=== PATIENT | female | born 1960 | race Caucasian/White ===

== ENCOUNTER 2019-12-03 15:42 | Emergency (ER) | payer MEDICAID ==
[~2019-12-03] VITALS: Ht 162.6 cm; Wt 140.6 kg
[2019-12-03 15:49] VITALS: BP_SYST 125
--- NOTE | 2019-12-03 15:58 | NUR ---
Patient triaged and placed in waiting room. VSS and patient appears in no acute distress at this time. Awaiting available bed, and MD notified of need for MSE.
--- NOTE | 2019-12-03 17:08 | NUR ---
Patient to ER bed 8 to gown for evaluation. Side rails up. Report given to GIOVANNI Knight.
--- NOTE | 2019-12-03 17:09 | NUR ---
Pt brought by self, A&Ox4, pt presents to ER with swelling/blisters pain and lower extremities, pt states she has Hx of dialysis long time ago, pt afebrile,follows commands, pt c/o SOB only with exertion, states she is smoker, will cont to monitor.
--- NOTE | 2019-12-03 17:15 | NUR ---
Dr Womack, L evaluating patient at bedside
[2019-12-03 17:50] LABS: BASOPHILS # (AUTO) 0.1 K/uL (0.0-0.2); BASOPHILS % (AUTO) 0.9 % (0.0-2.0); EOSINOPHILS # (AUTO) 0.3 K/uL (0.0-0.4); HEMATOCRIT 41.1 % (36-48); HEMOGLOBIN 13.3 g/dL (12.0-16.0); LYMPHOCYTES % (AUTO) 13.7 % (20.5-51.5); MEAN CORPUSCULAR HEMOGLOBIN 28 pg (27-31); MEAN CORPUSCULAR HGB CONC 32 % (32-36); MEAN CORPUSCULAR VOLUME 88 fL (79.0-98.0); MONOCYTES # (AUTO) 0.6 K/uL (0.0-1.0); MONOCYTES % (AUTO) 8.2 % (1.7-9.3); NEUTROPHILS # (AUTO) 5.6 K/uL (1.8-7.7); NEUTROPHILS % (AUTO) 73.2 % (40.0-70.0); PLATELET COUNT (AUTO) 320 K/uL (130-430); RED CELL DISTRIBUTION WIDTH 14.1 % (9.0-15.0); WHITE BLOOD COUNT (AUTO) 7.6 K/uL (4.8-10.8)
[2019-12-03 18:20] LABS: CALCIUM 9.1 mg/dL (8.4-11.0); CREATININE 0.73 mg/dL (0.55-1.30); POTASSIUM 3.3 mmol/L (3.5-5.1)
[2019-12-03 18:25] LABS: ALBUMIN 3.1 g/dL (3.4-4.8); TOTAL BILIRUBIN 0.4 mg/dL (0.0-1.0)
[2019-12-03 18:50] VITALS: BP_SYST 125
--- NOTE | 2019-12-03 19:02 | NUR ---
Patient Randi notified that she has an IV, spoke with Bassam in dispatch.
--- NOTE | 2019-12-03 19:03 | NUR ---
IV found on room 8 at this time, pt pulled out IV prior elopement.
== END 2019-12-03 19:02 | disposition left against medical advice (07) ==
LOC: SED 15:42
DX: R60.0 Localized edema (principal); R06.02 Shortness of breath; E87.6 Hypokalemia; E66.01 Morbid (severe) obesity due to excess calories; I10 Essential (primary) hypertension; E11.9 Type 2 diabetes mellitus without complications; F17.290 Nicotine dependence, other tobacco product, uncomplicated; Z68.43 Body mass index [BMI] 50.0-59.9, adult
CPT/HCPCS: 36415; 71045; 80053; 83605; 83880; 84484; 85025; 87040-TC; 93005; 99285